=== PATIENT | female | born 1990 | race Caucasian/White ===

== ENCOUNTER 2017-04-13 09:55 | Outpatient (CLI) | payer BC ==
[~2017-04-13] VITALS: Ht 170.2 cm; Wt 70.9 kg
[2017-04-13 10:12] VITALS: BP 106/68; PULSE 82; TEMP 98.7
[2017-04-13] MEDS ORDERED: LEVOXYL0.05 MG PO (10:17)
[2017-04-13] MEDS ORDERED: PRENATAL1 TA7 PO (10:18)
[2017-04-13] MEDS ORDERED: COLACE 100100 MG/CAP PO (10:18)
[2017-04-13] MEDS ORDERED: VITAMIN B COMPL1 SGL PO (10:18)
[2017-04-13] MEDS ORDERED: UNISOM25 MG PO (10:19)
[2017-04-13 11:00] VITALS: BP 103/57; PULSE 78
[2017-04-13 11:45] LABS: COLLECTION METHOD CATHETER
[2017-04-13 12:00] VITALS: BP 109/73; PULSE 80
[2017-04-13 12:05] LABS: MUCOUS Present /lpf; PH 8 (5-8); SQUAMOUS EPITHELIAL 0-2 /hpf; URINE APPEARANCE Clear; URINE BACTERIA Rare /hpf; URINE BILIRUBIN Negative (NEGATIVE); URINE BLOOD Negative (NEGATIVE); URINE COLOR Straw; URINE GLUCOSE Negative (NEGATIVE); URINE KETONE Negative (NEGATIVE); URINE LEUKOCYTE ESTERASE Negative (NEGATIVE); URINE PROTEIN(semi-quant) Negative (NEGATIVE); URINE RBC 0-2 /hpf; URINE UROBILINOGEN Negative (NEGATIVE)
[2017-04-13 12:10] VITALS: BP 100/62; PULSE 73
== END 2017-04-13 12:20 | disposition home or self-care (01) ==
LOC: LDRO 09:55
PROVIDERS: Obstetrics & Gynecology
DX: O46.93 Antepartum hemorrhage, unspecified, third trimester (principal); Z3A.29 29 weeks gestation of pregnancy

== ENCOUNTER 2017-05-02 06:52 | Inpatient (IN) | payer BC ==
[~2017-05-02] VITALS: Ht 170.2 cm; Wt 75.0 kg
[~2017-05-02 06:52] MED LIST: COLACE 100100 MG/CAP PO; LEVOXYL0.05 MG PO; PRENATAL1 TA7 PO; UNISOM25 MG PO; VITAMIN B COMPL1 SGL PO
[2017-06-27 20:27] VITALS: BP 105/63; PULSE 78; TEMP 98.5
[2017-06-27 21:30] VITALS: BP 102/50; PULSE 70
[2017-06-27 21:33] LABS: BASO % 0.4 % (0.0-2.0); EOS # 0.1 (0.0-0.7); EOS % 1.3 % (0-4.0); GRAN # 5.2 (1.4-6.5); LYMPH # 1.7 (1.2-3.4); LYMPH % 21.6 % (20.0-51.0); MEAN CELL VOLUME 96 fl (80.0-100.0); MEAN CORPUSCULAR HGB CONC 34 g/dl (33.0-37.0); MEAN PLATELET VOLUME 13.6 fl (7.4-10.4); MONO # 0.9 (0.1-0.6); MONO % 11.2 % (1.7-9.3); PLATELET COUNT 152 K/mm3 (130-400); RED BLOOD COUNT 3.53 M/mm3 (4.10-5.30); REDCELL DISTRIBUTION WIDTH-CV 12.3 % (11.5-14.5)
[2017-06-27 21:34] LABS: HEMATOCRIT 33.8 % (37.0-47.0); HEMOGLOBIN 11.6 g/dl (12.5-16.0); MEAN CORPUSCULAR HEMOGLOBIN 33 pg (27.0-31.0)
[2017-06-27 22:00] VITALS: BP 98/54; PULSE 66
[2017-06-27 22:30] VITALS: BP 95/50; PULSE 60
[2017-06-27 23:00] VITALS: BP 102/68; PULSE 58
[2017-06-27 23:30] VITALS: BP 104/66; PULSE 59
[2017-06-28] VITALS (57 sets, daily range): BP systolic 72–156; BP diastolic 38–75; PULSE 45–121; TEMP 97.8–98.6
[2017-06-29 02:50] VITALS: BP 100/70; PULSE 54; TEMP 97.8
[2017-06-29 06:44] LABS: HEMATOCRIT 32.6 % (37.0-47.0); HEMOGLOBIN 11.2 g/dl (12.5-16.0)
[2017-06-29 08:00] VITALS: BP 112/71; PULSE 60; TEMP 97.8
[2017-06-29 16:41] VITALS: BP 98/53; PULSE 64; TEMP 98
== END 2017-06-29 17:55 | disposition home or self-care (01) | DRG 775 ==
LOC: LDR 06-27 07:15 → OB 06-27 20:06 → LDR 06-27 20:06 → LDRO 06-28 06:52 → EDSTATUS 06-28 07:14 → OB 06-28 19:00
PROVIDERS: Obstetrics & Gynecology
PROC: 10E0XZZ Delivery of Products of Conception, External Approach (ICD-10-PCS; principal; 2017-06-28)
PROC: 0HQ9XZZ Repair Perineum Skin, External Approach (ICD-10-PCS; 2017-06-28)
PROC: 3E033VJ Introduction of Other Hormone into Peripheral Vein, Percutaneous Approach (ICD-10-PCS; 2017-06-28)
DX: O48.0 Post-term pregnancy (principal); O70.0 First degree perineal laceration during delivery; Z3A.40 40 weeks gestation of pregnancy; Z37.0 Single live birth
CPT/HCPCS: J2590; J7120

== ENCOUNTER 2019-11-08 09:45 | Inpatient (IN) | payer BC ==
[~2019-11-08] VITALS: Ht 167.6 cm; Wt 80.9 kg
[2019-11-08] VITALS (8 sets, daily range): BP systolic 101–115; BP diastolic 50–77; PULSE 63–92; TEMP 97.9
[~2019-11-08 09:45] MED LIST changes: +CEFTIN500 MG PO; +GLUCOSAMINE PO; +NO HOME MEDICATIONS; +NORCO 325 MG-51 TAB PO; +ZOFRAN 4MG T4 MG/TAB PO
--- NOTE | 2019-11-08 20:50 | NUR ---
2049- PT PRESENTS TO LDR FOR SCHEDULED INDUCTION, AMBULATORY TO ROOM LR6, CHANGED INTO GOWN. 2055- EFM X2 APPLIED. PLAN OF CARE FOR INDUCTION DISCUSSED AND QUESTIONS ANSWERED. 2114- IV START TO LEFT WRIST CHARTED, BLOOD DRAWN FOR LAB, LR INFUSING. CONSENTS SIGNED. 2119- NURSING ADMISSION HISTORY AND ASSESSMENT COMPLETE. 2129- SVE BY THIS NURSE 2-. NO PRESENTING PART PALPATED. PITOCIN STARTED ORDERED BY DR JOINER. 2149- DR JOINER AT [facility] FOR C/S OF ANOTHER PT. REVIEWS THIS PT'S EFM STRIP AND IS UPDATED BY THIS NURSE. STATES HE WILL DO BEDSIDE SONO AFTER HE IS DONE WITH SURGERY. 2199- PT UPDATED WITH PLAN OF CARE. PITOCIN INCREASED. 2219- DR JOINER AT BEDSIDE. BEDSIDE SONO USED TO VERIFY VERTEX POSITION. SVE BY DR JOINER . AROM OF CLEAR FLUID, MINIMAL RETURN. 2245- PT UP TO BATHROOM 2250- PT BACK ON MONITORS. ASSISTED TO USE BIRTHING BALL AT BEDSIDE. DIFFICULT TO TRACE EFM WHILE MOM IS ON BALL. 2255- NURSE AT BEDSIDE, MONITORS ADJUSTED. 2315- MOM REPORTS INCREASED CONTRACTIONS, NURSE AT BEDSIDE, MONITORS ADJUSTED. 2333- PT ASSISTED TO BATHROOM 2340- PT BACK TO BED. REPORTS INCREASING DISCOMFORT. DISCUSSED PLAN OF CARE, WILL PERFORM SVE AROUND 0030 UNLESS PT MORE UNCOMFORTABLE. PT AGREEABLE WITH THIS PLAN. 2355- MONITORS ADJUSTED. 0020- PT CALLS OUT WITH INCREASING DISCOMFORT AND WISHES TO BE CHECKED. 0025- SVE BY THIS NURSE . PT WISHES TO HAVE EPIDURAL. 0035- COREY BELT PUNCHER CALLED FOR EPIDURAL. 0045- PT UP TO BATHROOM. 0058- PT BACK TO BED, SITTING UP FOR EPIDURAL, MONITORS ADJUSTED. 0104- COREY BELT PUNCHER AT BEDSIDE. EPIDURAL DISCUSSED AND PT QUESTIONS ANSWERED. 0112- EPIDURAL TEST DOSE. MONITORS ADJUSTED. 0118- EPIDURAL PROCEDURE COMPLETE. PT POSITIONED IN LEFT TILT, MONITORS ADJUSTED. PT REPORTS WARM FEET, BUT CONTRACTIONS STILL UNCOMFORTABLE.
[2019-11-08 21:18] LABS: BASO % 0.1 % (0.0-2.0); EOS # 0.1 (0.0-0.7); EOS % 1.6 % (0-4.0); GRAN # 5.6 (1.4-6.5); HEMOGLOBIN 12.2 g/dl (12.5-16.0); LYMPH # 1.5 (1.2-3.4); LYMPH % 18.2 % (20.0-51.0); MEAN CELL VOLUME 95 fl (80.0-100.0); MEAN CORPUSCULAR HEMOGLOBIN 33 pg (27.0-31.0); MEAN CORPUSCULAR HGB CONC 34 g/dl (33.0-37.0); MEAN PLATELET VOLUME 12.3 fl (7.4-10.4); MONO # 0.9 (0.1-0.6); MONO % 10.5 % (1.7-9.3); PLATELET COUNT 169 K/mm3 (130-400); RED BLOOD COUNT 3.74 M/mm3 (4.10-5.30); REDCELL DISTRIBUTION WIDTH-CV 12.5 % (11.5-14.5)
[2019-11-08 21:21] LABS: HEMATOCRIT 35.5 % (37.0-47.0)
[2019-11-09] VITALS (20 sets, daily range): BP systolic 89–122; BP diastolic 47–73; PULSE 52–110; TEMP 98–98.8
--- NOTE | 2019-11-09 01:30 | NUR ---
0130- PT REPORTS SHE IS STILL UNCOMFORTABLE. COREY NOTIFIED. 0135- PT REPORTS SHE IS FEELING SOME PRESSURE. SVE BY THIS NURSE -1. 0140- DR JOINER CALLED AND UPDATED ON PT PROGRESS, REQUEST HIS PRESENSE AT HOSPITAL. 0145- PT STILL NOT COMFORTABLE WITH HER EPIDURAL. STATE SHE FEELS LIKE SHE COULD PUSH. SVE BY THIS NURSE COMPLETE/+2. PT ENCOURAGED TO BREATH THROUGH CONTRACTIONS AND NOT BEAR DOWN. PITOCIN TURNED OFF. 0155- PT STARTING TO FEEL COMFORTABLE. DR JOINER AT BEDSIDE. PT POSITIONED IN FOOTPLATES FOR PUSHING. 0158- PT BEGINS COACHED PUSHING WITH CONTRACTIONS. 0212- SPONTANEOUS VAGINAL DELIVERY OF VIABLE FEMALE, VIGOROUS, TO MOTHER'S ABDOMEN AND CARE OF NURSERY STAFF. 0225- SPONTANEOUS DELIVERY OF PLACENTA, EXAMINED BY DR JOINER, NO REPAIR. STRAIGHT CATHED BY DR JOINER. 0230- PERICARE PROVIDED. ICEPACK TO PERINEUM. FEET DOWN FROM FOOTPLATES AND RECOVERY STARTED.
--- NOTE | 2019-11-09 04:50 | NUR ---
0450- IV TO SALINE LOCK, EPIDURAL CATHETER REMOVED CHARTED. PT ASSISTED TO AMBULATE TO BATHROOM, ABLE TO VOID 300ML WITHOUT DIFFICULTY. PT PERFORMS PERICARE. CLEAN GOWN, PAD, PANTIES PROVIDED. NORMAL LOCHIA DISCUSSED. PT PASSES LARGE CLOT WHILE ON TOILET. 0505- PT AMBULATES TO . BELONGINGS AND BABY SENT WITH PT. PT ORIENTED TO ROOM AND CALL LIGHTS, QUESTIONS ANSWERED, PLAN OF CARE DISCUSSED.
--- NOTE | 2019-11-09 05:45 | NUR ---
0545- RECOVERY ASSESSMENT, FUNDUS NOT FIRM AND SHIFTED TO LEFT. MINIMAL IMPROVEMENT WITH MASSAGE, PAD SATURATED. PT UP TO BATHROOM, ABLE TO VOID 200ML. PASSES 2 LARGE CLOTS ON TOILET. CLEAN PAD AND PANTIES PROVIDED. PT BACK TO BED. FUNDAL MASSAGE PERFORMED AND UTERUS FIRMS UP. ENCOURAGED PT TO REPORT FURTHER HEAVY BLEEDING AND EMPTY BLADDER OFTEN.
--- NOTE | 2019-11-09 07:30 | NUR ---
Rests in bed, alert. Ambulates to the bathroom. Small clot noted, bleeding small amount. Fundus firm with palpation. Denies any other needs at this time.
--- NOTE | 2019-11-09 09:28 | NUR ---
In nursery for bath. Warmed up and sent out to room with patient pushing the crib.
[2019-11-09] MEDS ORDERED: MOTRIN 600600 MG/TAB PO (10:25)
[2019-11-09 10:44] LABS: HEMOGLOBIN 11.5 g/dl (12.5-16.0)
[2019-11-09 10:53] LABS: HEMATOCRIT 34.2 % (37.0-47.0)
--- NOTE | 2019-11-09 15:45 | NUR ---
Request pain medication. Ibuprofen 600 mg given per request and as ordered.
[2019-11-10 02:00] VITALS: BP 107/60; PULSE 51; TEMP 98.3
[2019-11-10 08:00] VITALS: BP 112/66; PULSE 70; TEMP 97.4
--- NOTE | 2019-11-10 08:00 | NUR ---
Rests in bed, alert. Assessment done, denies any needs at this time. Baby in crib.
--- NOTE | 2019-11-10 10:00 | NUR ---
Rests in bed, alert. Discharge instructions given, verbalizes understanding.
== END 2019-11-10 10:00 | disposition home or self-care (01) | DRG 807 ==
LOC: LDR 09:45 → OB 11-09 05:05
PROVIDERS: ADMIT Obstetrics & Gynecology
PROC: 10E0XZZ Delivery of Products of Conception, External Approach (ICD-10-PCS; principal; 2019-11-08)
PROC: 3E033VJ Introduction of Other Hormone into Peripheral Vein, Percutaneous Approach (ICD-10-PCS; 2019-11-08)
DX: O99.02 Anemia complicating childbirth (principal); Z37.0 Single live birth; O99.284 Endocrine, nutritional and metabolic diseases complicating childbirth; O99.62 Diseases of the digestive system complicating childbirth; D64.9 Anemia, unspecified; E02 Subclinical iodine-deficiency hypothyroidism; K58.9 Irritable bowel syndrome, unspecified; K59.00 Constipation, unspecified; E28.2 Polycystic ovarian syndrome; Z3A.39 39 weeks gestation of pregnancy
CPT/HCPCS: J2590; J7120

== ENCOUNTER → 2020-06-06 | Outpatient (CLI) | payer BC ==
[~2020-06-06] MED LIST changes: +MOTRIN 600600 MG/TAB PO
== END ==
LOC: MC.RAD 09:00
DX: Z12.31 Encounter for screening mammogram for malignant neoplasm of breast (principal); N63.10 Unspecified lump in the right breast, unspecified quadrant